=== PATIENT | female | born 2000 | race Hispanic/Latino ===

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

== ENCOUNTER 2022-11-27 22:53 | Emergency (ER) | payer SELFPAY ==
--- OUTSIDE RECORDS SUMMARY | 2022-11-27 22:56 | XMS REPORT | Continuity of Care Document ---
:2000 Author Organization [facility] t Address [address] [facility] [address] [place] [id number] Care Team Providers Name Role Phone Unavailable Unavailable Unavailable Problems This patient has no known problems. Allergies, Adverse Reactions, Alerts Allergy Allergy Status Severity Reaction(s) Onset Inactive Treating Comm ents Source Name Type Date Date Clinician NO KNOWN Drug Active [facility] ALLERGIE [facility] Medications This patient has no known medications. Procedures This patient has no known procedures. Encounters Start End Encounter Admission Attending Care Care Encounter Source Date/Time Date/Time Type Type Clinicians Facility Department ID 2021-02-18 Emergency [facility] [id number] [facility] 06:25:13 [facility] Results This patient has no known results.
[2022-11-27] MEDS ORDERED: LORAZEPAM 1 MG TABLET ONE (23:42)
--- NOTE | 2022-11-27 23:54 | ER ---
Nurse's Notes [facility] Name: Alicia Torres Age: 22 yrs Sex: Female : 2000 Arrival Date: 11/27/2022 Time: 22:53 Bed 12 Private MD: Diagnosis: Epistaxis-resolved;Anxiety disorder, unspecified Presentation: 11/27 22:58 Chief complaint: Patient states: BECAME SOB AND ANXIOUS WHEN NOSE BEGAN TO BLEED. Coronavirus screen: Vaccine status: Patient reports receiving the 2nd dose of the covid vaccine. Ebola Screen: Patient negative for fever greater than or equal to 101.5 degrees Fahrenheit, and additional compatible Ebola Virus Disease symptoms. Initial Sepsis Screen: Does the patient meet any 2 criteria? No. Patient's initial sepsis screen is negative. Does the patient have a suspected source of infection? No. Patient's initial sepsis screen is negative. Risk Assessment: Do you want to hurt yourself or someone else? Patient reports no desire to harm self or others. 22:58 Method Of Arrival: Wheelchair 22:58 Acuity: GENESIS 4 Triage Assessment: 23:01 General: Appears distressed, Behavior is anxious, crying. Pain: Denies pain. Respiratory: Breath sounds are clear bilaterally. Historical: - Allergies: 23:00 No Known Allergies; kl - Home Meds: 23:00 Lexapro 10 mg Oral tablet daily [Active]; albuterol sulfate 90 mcg/actuation inhalation HFA Aerosol Inhaler 1 puff [Active]; - PMHx: 23:00 Asthma; Vertigo; Anxiety; kl - PSHx: 23:00 ANKLE; kl - Immunization history:: Adult Immunizations not immunized. - Social history:: Smoking status: Patient denies any tobacco usage or history of. Screenin/11 00:26 [facility] ED Fall Risk Assessment (Adult) History of falling in the last 3 months, including since admission No falls in past 3 months (0 pts) Confusion or Disorientation No (0 pts) Intoxicated or Sedated No (0 pts) Impaired Gait No (0 pts) Mobility Assist Device Used No (0 pt) Altered Elimination No (0 pt) Score/Fall Risk Level 0 - 2 = Low Risk Oriented to surroundings, Maintained a safe environment. Abuse screen: Denies threats or abuse. Nutritional screening: No deficits noted. Tuberculosis screening: No symptoms or risk factors identified. Assessment: 00:26 Reassessment: Patient appears in no apparent distress at this time. Patient denies pain kl at this time. Patient states feeling better. Patient states symptoms have improved. Vital Signs: 11/27 22:58 BP 138 / 88; Pulse 98; Resp 20; Pulse Ox 100% on R/A; Weight 127.01 kg (R); Height 5 kl ft. 6 in. ; 11/28 00:26 BP 128 / 77; Pulse 84; Resp 18; Pulse Ox 99% on R/A; kl 11/27 22:58 Body Mass Index 45.19 (127.01 kg, 167.64 cm) ED Course: 11/27 22:58 Patient arrived in ED. 23:00 Triage completed. 23:02 Arm band placed on. 23:16 Deangelo Dumont PA is PHCP. 23:16 Deangelo Davis MD is Attending Physician. 11/28 00:27 No provider procedures requiring assistance completed. Patient did not have IV access kl during this emergency room visit. Administered Medications: 11/27 23:34 Drug: LORazepam PO 2 mg Route: PO; mb9 Outcome: 23:54 Discharge ordered by . 11/28 00:27 Discharged to home ambulatory. kl Condition: improved Discharge instructions given to patient, Instructed on discharge instructions, follow up and referral plans. Demonstrated understanding of instructions, follow-up care. 00:27 Patient left the ED. Signatures: Katarina Hill RN RN kl Page, Corey, PA PA cp Breneman, Mary Beth, RN RN mb9
--- NOTE | 2022-11-27 23:54 | EDPHYS ---
Physician Documentation [facility] Name: Alicia Torres Age: 22 yrs Sex: Female : 2000 Arrival Date: 11/27/2022 Time: 22:53 Bed 12 Private MD: ED Physician Deangelo Davis HPI: 11/27 23:30 This 22 yrs old Female presents to ER via Wheelchair with complaints of cp Epistaxis and Anxiety. 23:10 Patient is a 22-year-old female with past medical history significant for asthma and cp anxiety. Patient presents to the emergency department with reported anxiety attack. Patient reports she was at home cleaning her restroom when she started having some shortness of breath and then she noticed that she started bleeding from her nose, the left nostril. She stated this made her shortness of breath worse and she presents to the emergency room tearful, reporting shortness of breath and chest pressure. She reports she used a towel and was able to get the bleeding to stop prior to presentation to the emergency room. She states in the past she has had nosebleeds caused by the multiple piercings in her nose but this nosebleed was worse. Denies any passing out. Historical: - Allergies: 23:00 No Known Allergies; kl - Home Meds: 23:00 Lexapro 10 mg Oral tablet daily [Active]; albuterol sulfate 90 mcg/actuation inhalation kl HFA Aerosol Inhaler 1 puff [Active]; - PMHx: 23:00 Asthma; Vertigo; Anxiety; kl - PSHx: 23:00 ANKLE; kl - Immunization history:: Adult Immunizations not immunized. - Social history:: Smoking status: Patient denies any tobacco usage or history of. ROS: 23:35 Cardiovascular: Positive for chest pain, Negative for edema, palpitations. cp 23:35 Eyes: Negative for injury, pain, redness, and discharge. cp 23:35 Constitutional: Negative for body aches, chills, fever. 23:35 ENT: Positive for nose bleed, Negative for drainage from ear(s), ear pain, sore throat, difficulty swallowing, difficulty handling secretions. 23:35 Respiratory: Positive for shortness of breath, at rest. 23:35 Abdomen/GI: Negative for abdominal pain, vomiting, diarrhea, constipation. 23:35 Neuro: Negative for altered mental status. 23:35 Psych: Positive for anxiety. 23:35 All other systems are negative. Exam: 23:40 Constitutional: The patient appears in no acute distress, alert, awake, cp non-diaphoretic, non-toxic, well developed, well nourished, anxious, uncomfortable. 23:40 Head/Face: Normocephalic, atraumatic. cp 23:40 Eyes: Periorbital structures: appear normal, Pupils: equal, round, and reactive to light and accomodation, Conjunctiva: normal, no exudate, no injection, Sclera: no appreciated abnormality, Lids and lashes: appear normal, bilaterally. 23:40 ENT: External ear(s): are unremarkable, Nose: External nose: no obvious acute abnormality, nasal drainage, that is minimal, and expressed from the left nare, that is blood tinged, Mouth: is normal, Posterior pharynx: is normal, airway is patent, no erythema, no exudate. 23:40 Neck: ROM/movement: is normal, is supple, without pain, no range of motions limitations. 23:40 Chest/axilla: Inspection: normal. 23:40 Cardiovascular: Rate: normal, Rhythm: regular. 23:40 Respiratory: the patient does not display signs of respiratory distress, Respirations: labored breathing, that is mild, Breath sounds: are clear throughout, no decreased breath sounds, no stridor, no wheezing. 23:40 Abdomen/GI: Inspection: abdomen appears normal, Palpation: abdomen is soft and non-tender, in all quadrants. 23:40 Neuro: Orientation: to person, place \T\ time. Mentation: is normal. 23:40 Psych: Behavior/mood is anxious, Patient has no thoughts/intents to harm self or others. Judgement / Insight is normal. Delusions/hallucinations are not present. Vital Signs: 22:58 BP 138 / 88; Pulse 98; Resp 20; Pulse Ox 100% on R/A; Weight 127.01 kg (R); Height 5 kl ft. 6 in. ; 11/28 00:26 BP 128 / 77; Pulse 84; Resp 18; Pulse Ox 99% on R/A; kl 11/27 22:58 Body Mass Index 45.19 (127.01 kg, 167.64 cm) kl MDM: 11/27 23:17 Patient medically screened. [facility] 23:53 Data reviewed: vital signs, nurses notes. 23:53 Differential diagnosis: foreign body - resolved, foreign body - unresolved, nasal cp fracture, trauma, sinusitis. I considered the following discharge prescriptions or medication management in the emergency department Medications were administered in the Emergency Department. See MAR. Counseling: I had a detailed discussion with the patient and/or guardian regarding: the historical points, exam findings, and any diagnostic results supporting the discharge/admit diagnosis, to return to the emergency department if symptoms worsen or persist or if there are any questions or concerns that arise at home. Response to treatment: the patient's symptoms have markedly improved after treatment, and as a result, I will discharge patient. Administered Medications: 23:34 Drug: LORazepam PO 2 mg Route: PO; mb9 Disposition Summary: 11/27/22 23:54 Discharge Ordered Location: Home cp Problem: new cp Symptoms: have improved cp Condition: Stable cp Diagnosis - Epistaxis - resolved cp - Anxiety disorder, unspecified cp Followup: cp - With: Emergency Department - When: As needed - Reason: Worsening of condition Discharge Instructions: - Discharge Summary Sheet cp - Nosebleed, Adult cp - Generalized Anxiety Disorder, Adult cp Forms: - Medication Reconciliation Form cp - Thank You Letter cp - Antibiotic Education cp - Prescription Opioid Use cp - Patient Portal Instructions cp Signatures: Katarina Hill RN RN kl Anderson, Corey, MD MD cha Page, Corey, PA PA cp Marlee Valente RN RN mb9 Corrections: (The following items were deleted from the chart) 11/29 00:16 00:14 This 22 yrs old Female presents to ER via Wheelchair with complaints of cp Epistaxis and Anxiety. cp 00:17 11/28 23:30 This 22 yrs old Female presents to ER via Wheelchair with cp complaints of Epistaxis and Anxiety. cp 11/29 00:17 08 23:30 Patient is a 22-year-old female with past medical history significant for cp asthma and anxiety. Patient presents to the emergency department with reported anxiety attack. Patient reports she was at home cleaning her restroom when she started having some shortness of breath and then she noticed that she started bleeding from her nose, the left nostril. She stated this made her shortness of breath worse and she presents to the emergency room tearful, reporting shortness of breath and chest pressure. She reports she used a towel and was able to get the bleeding to stop prior to presentation to the emergency room. She states in the past she has had nosebleeds caused by the multiple piercings in her nose but this nosebleed was worse. Denies any passing out. cp
[2022-11-28 00:37] VITALS: BP 128/77; O2SAT 99
== END 2022-11-28 00:27 | disposition home or self-care (01) ==
LOC: ER 22:53
DX: R04.0 Epistaxis (principal); F41.9 Anxiety disorder, unspecified
CPT/HCPCS: 99283

== ENCOUNTER 2024-06-05 10:45 | Emergency (ER) | payer OTHER, SELFPAY ==
--- OUTSIDE RECORDS SUMMARY | 2024-06-05 10:47 | XMS REPORT | Continuity of Care Document ---
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
[2024-06-05 12:42] LABS: Absolute Basophils 0.1 K/uL (0-0.5); Absolute Eosinophils 0.2 K/uL (0-0.5); Absolute Lymphocytes (CBC) 2.6 K/uL (0.7-4.9); Absolute Monocytes 0.6 K/uL (0.1-1.3); Absolute Neutrophil 8.4 K/uL (1.8-8.0); Basophils % 0.5 % (0-1.3); Eosinophils % 1.4 % (0-4.4); Hematocrit 35.3 % (36.0-45.0); Hemoglobin 12.1 g/dL (12.0-15.0); Lymphocytes % 21.7 % (15.3-44.8); MCH 26.4 pg (27.0-35.0); MCHC 34.3 g/dL (32.0-36.0); MPV 7.9 fL (7.6-11.3); Monocytes % 5.1 % (3.3-12.3); Neutrophils % 71.3 % (41.7-73.7); Platelets 350 thou/uL (152-406); RBC Red Blood Cell Count 4.59 M/uL (3.86-4.86); Red Cell Distribution Width 14.5 % (12.1-15.2)
[2024-06-05] MEDS ORDERED: ONDANSETRON 4 MG/2 ML VIAL ONE (12:46)
[2024-06-05] MEDS ORDERED: KETOROLAC 30 MG/ML INJ ONE (12:46)
[2024-06-05 12:47] LABS: Specific Gravity 1.007 (1.005-1.030); Sqamous Epithelial <5 /HPF (None Seen); Urine Bacteria <20 /HPF (<20); Urine Bilirubin NEGATIVE (Negative); Urine Blood Negative (Negative); Urine Clarity Turbid (Clear); Urine Color Colorless (Yellow); Urine Crystals Unidentified Few /HPF (None Seen); Urine Culture Reflex Order NOT NEEDED; Urine Glucose NEGATIVE (Negative); Urine Ketones NEGATIVE (Negative); Urine Microscopic Reflex YN ORDER UMIC; Urine Nitrite NEGATIVE (Negative); Urine Protein NEGATIVE (Negative); Urine RBC <5 /HPF (None Seen); Urine Urobilinogen Normal (Normal); Urine WBC <5 /HPF (<5); Urine Yeast (Budding) Trace /HPF (None Seen)
[2024-06-05 12:58] LABS: Albumin 3.4 g/dL (3.4-5.0); Albumin/Globulin Ratio 0.7 (1.1-1.8); Anion Gap 7.5 mEq/L (5.0-15.0); Bilirubin Total 0.5 mg/dL (0.2-1.0); Globulin 5.1 g/dL (2.3-3.5); Potassium 3.5 mEq/L (3.5-5.1); Protein, Total 8.5 g/dL (6.4-8.2)
--- NOTE | 2024-06-05 13:22 | RAD REPORT ---
EXAMINATION: CT ABDOMEN AND PELVIS WITHOUT CONTRAST CLINICAL INDICATION: Abdominal pain. Left flank pain TECHNIQUE: CT abdomen and pelvis was performed, as per department protocol. IV contrast and oral was not administered.Axial, sagittal and coronal reconstructions were obtained. One or more of the following dose reduction techniques were used: Automated exposure control, adjustment of the mA and/o r kV according to the patient size, and/or iterative reconstruction. Unless otherwise specified, incidental findings do not require dedicated imaging follow-up. [id number]. COMPARISON: August 2023 ultrasound FINDINGS: The lack of intravenous and oral contrast limits evaluation of solid organs, vessels and bowel. The liver, spleen, pancreas, adrenals and kidneys appear grossly normal No evidence of diverticulitis. IUD within the uterus Normal appendix. 6.3 cm cystic mass left adnexa mildly enlarged from prior exam. No significant free fluid IMPRESSION: 6.3 cm cystic left adnexal mass is mildly enlarged from prior exam.Pelvic ultrasound is recommended
--- NOTE | 2024-06-05 14:29 | RAD REPORT ---
EXAMINATION: Pelvis Complete CLINICAL INDICATION: Pelvic pain TECHNIQUE: Real-time ultrasonography of the pelvis was performed transabdominally.. Color and spectra l Doppler evaluation of the ovaries was performed. COMPARISON: August 2023. Findings: The uterus measures 5 x 2 x 3 cm. Endometrial stripe normal in thickness. An IUD is present. The distal aspect lies at the junction of the uterine fundus and body. Right ovary upper limits normal in size. Normal echotexture. 6 cm left ovarian cyst. Minimal debris is present. Blood flow is present to the left ovary.. It is mi nimally enlarged from August 2023 . Right and left adnexa unremarkable. No significant free fluid IMPRESSION: 5.9 cm left ovarian cyst is mostly simple. It may represent a benign cyst. Low-grade cystic neoplasm can also have this appearance.Recommend either gynecology consult and follow-up US in 6 months, or MR with IV contrast for improved characterization. The distal aspect of an IUD lies at the junction of the fundus and body
--- NOTE | 2024-06-05 14:30 | RAD REPORT ---
EXAMINATION: Transvaginal Study Probe CLINICAL INDICATION: Pelvic pain TECHNIQUE: Real-time ultrasonography of the pelvis was performed transvaginally. Color and spectral D oppler evaluation of the ovaries was performed. COMPARISON: August 2023. FINDINGS: The uterus measures 5 x 2 x 3 cm. Endometrial stripe normal in thickness. An IUD is present. The distal aspect lies at the junction of the uterine fundus and body. Right ovary upper limits normal in size. Normal echotexture. 6 cm left ovarian cyst. Minimal debris is present. Blood flow is present to the left ovary.. It is mi nimally enlarged from August 2023 .Right and left adnexa unremarkable. No significant free fluid IMPRESSION: 5.9 cm left ovarian cyst is mostly simple. It may represent a benign cyst. Low-grade cystic neoplasm can also have this appearance.Recommend either gynecology consult and follow-up US in 6 months, or MR with IV contrast for improved characterization.
--- NOTE | 2024-06-05 14:41 | EDPHYS ---
Physician Documentation [facility] Name: Alicia Torres Age: 24 yrs Sex: Female : 2000 Arrival Date: 06/05/2024 Time: 10:45 Bed 18 Private MD: ED Physician Justin Dukes HPI: 06/05 11:25 This 24 yrs old Female presents to ER via Unassigned with complaints of Low ec2 Back Pain. 11:25 Patient arrives today for evaluation of left abdominal pain and flank pain. Reports ec2 that she had several days of symptoms that been progressively worsened. Patient reports left flank pain, no falls injuries or trauma. Reports that she is also having some left-sided abdominal pain as well. Some nausea, no vomiting. Denies any urinary complaints. Reports no previous abdominal surgeries. Reports history of PCOS.. 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 - Infectious Disease History:: Denies. - Social history:: Smoking status: Patient denies any tobacco usage or history of. ROS: 11:26 Constitutional: as per hpi ec2 Exam: 11:26 Constitutional: GEN: NAD Head: atraumatic Eyes: EOMI Ears: External ears are ec2 normal. CV: regular rate LUNGS: no respiratory distress ABD: non-distended, soft, not guarding, not rigid, left CVA TTP. SKIN: no evidence of rashes MSK: no evidence of trauma Vital Signs: 12:12 BP 148 / 90; Pulse 66; Resp 16; Temp 98.6; Pulse Ox 100% ; Weight 136.08 kg; Height 5 hb ft. 6 in. ; Pain 6/10; 14:46 BP 137 / 76; Pulse 61; Resp 18; Pulse Ox 97% on R/A; mb9 12:12 Body Mass Index 48.42 (136.08 kg, 167.64 cm) hb 12:12 Pain Scale: Adult hb MDM: 11:26 Data reviewed: vital signs, nurses notes. ED course: Patient arrives today for left ec2 flank pain and abdominal pain. Emanation yields abdominal findings as above. Will obtain lab work, urine studies, CT imaging. Differential occludes hemorrhagic cyst, UTI, pyelonephritis, musculoskeletal strain. 11:45 Medical Screening Exam initiated ec2 13:10 ED course: CBC is reassuring. Metabolic profile with appropriate electrolytes and urine ec2 is noninfectious, negative . Pending CT imaging.. 13:28 ED course: CT abdomen pelvis shows ovarian mass. Will obtain follow-up ultrasonography. ec2 . 14:40 ED course: Ultrasound shows simple cyst, had the patient follow-up with gynecology. ec2 Return precautions given.. 06/05 11:25 Order name: CBC with Diff; Complete Time: 13:10 ec2 06/05 11:25 Order name: CMP; Complete Time: 13:10 ec2 06/05 11:25 Order name: Lipase; Complete Time: 13:10 ec2 06/05 11:25 Order name: Test, Urine; Complete Time: 13:10 ec2 06/05 11:25 Order name: Urinalysis w/ reflexes; Complete Time: 13:10 ec2 06/05 11:25 Order name: CT Abd/Pelvis - Without Contrast; Complete Time: 13:27 ec2 06/05 13:27 Order name: Transvaginal Study (probe); Complete Time: 14:39 ec2 06/05 14:06 Order name: Pelvis Complete; Complete Time: 14:39 EDMS 06/05 11:25 Order name: IV Saline Lock; Complete Time: 12:34 ec2 06/05 11:25 Order name: Labs collected and sent; Complete Time: 12:35 ec2 Administered Medications: 13:15 Drug: TORadol - Ketorolac IVP 15 mg IVP once Route: IVP; Site: left antecubital; hb 14:47 Follow up: Response: No adverse reaction mb9 13:15 Drug: Ondansetron IVP 4 mg IVP once; over 2 minutes Route: IVP; Site: left antecubital; hb 14:47 Follow up: Response: No adverse reaction mb9 Disposition Summary: 06/05/24 14:40 Discharge Ordered Notes: Location: Home ec2 Condition: Stable ec2 Diagnosis - Other ovarian cysts ec2 Followup: ec2 - With: Estelle Win MD - When: - Reason: Recheck today's complaints Discharge Instructions: - Discharge Summary Sheet ec2 - Ovarian Cyst, [id number] ec2 Forms: - Work release form mb9 - Medication Reconciliation Form ec2 - Antibiotic Education ec2 - Prescription Opioid Use ec2 - Patient Portal Instructions ec2 - Leadership Thank You Letter ec2 Prescriptions: - acetaminophen-codeine 300-30 mg Oral tablet - take 1 tablet ORAL route every 4 hours as needed for pain; 15 tablet; Refills: ec2 0, Product Selection Permitted Signatures: Dispatcher [employer] EDMS Darcie Murphy RN RN Justin Dukes MD MD ec2 Marlee Kang RN mb9 Corrections: (The following items were deleted from the chart) 11:25 11:25 CBC+H.LAB.BRZ ordered. EDMS EDMS 11:25 11:25 COMPREHENSIVE METABOLIC PANEL+C.LAB.BRZ ordered. EDMS EDMS 11:25 11:25 LIPASE+C.LAB.BRZ ordered. EDMS EDMS 11:25 11:25 Test, Urine+UC.LAB.BRZ ordered. EDMS EDMS 11:25 11:25 Urinalysis+U.LAB.BRZ ordered. EDMS EDMS 11:25 11:25 Abdomen Pelvis Wo Con+CT.RAD.BRZ ordered. EDMS EDMS 12:15 12:14 PMHx: ovarian cysts (Vertigo); hb hb 12:15 12:14 PMHx: PCOS (Ankle); hb hb
--- NOTE | 2024-06-05 14:41 | ER ---
Nurse's Notes [facility] Name: Alicia Torres Age: 24 yrs Sex: Female : 2000 Arrival Date: 06/05/2024 Time: 10:45 Bed 18 Private MD: Diagnosis: Other ovarian cysts Presentation: 06/05 12:12 Chief complaint: Patient states: left lower back pain that wraps around to LLQ started hb yesterday, 09/27, sharp. Was worse but took Ibuprofen 800mg about 08:30 this morning. Coronavirus screen: Vaccine status: Patient reports receiving the 2nd dose of the covid vaccine. Ebola Screen: No symptoms or risks identified at this time. Initial Sepsis Screen: Does the patient meet any 2 criteria? No. Patient's initial sepsis screen is negative. Does the patient have a suspected source of infection? No. Patient's initial sepsis screen is negative. Risk Assessment: Do you want to hurt yourself or someone else? Patient reports no desire to harm self or others. Onset of symptoms was June 04, 2024. 12:12 Method Of Arrival: Ambulatory 12:12 Acuity: GENESIS 3 hb Triage Assessment: 12:15 General: Appears uncomfortable, obese, well groomed, well developed, Behavior is calm, hb cooperative, appropriate for age. Pain: Complains of pain in left low back Pain radiates to left lower quadrant Pain currently is 6 out of 10 on a pain scale. Quality of pain is described as sharp, Pain began 1 day ago. Is continuous. EENT: No signs and/or symptoms were reported regarding the EENT system. Neuro: Level of Consciousness is awake, alert, obeys commands, Oriented to person, place, time, situation, Appropriate for age. Cardiovascular: Patient's skin is warm and dry. Respiratory: Airway is patent Respiratory effort is even, unlabored, Respiratory pattern is regular, symmetrical. GI: No signs and/or symptoms were reported involving the gastrointestinal system. : Reports pain in left lower quadrant(s) in lower back since yesterday Denies burning with urination, urinary frequency. Derm: Skin is intact, is healthy with good turgor, Skin is pink, warm \T\ dry. Musculoskeletal: No signs and/or symptoms reported regarding the musculoskeletal system. 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 - Infectious Disease History:: Denies. - Social history:: Smoking status: Patient denies any tobacco usage or history of. Screenin:16 [facility] ED Fall Risk Assessment (Adult) History of falling in the last 3 months, hb including since admission No falls in past 3 months (0 pts) Confusion or Disorientation No (0 pts) Intoxicated or Sedated No (0 pts) Impaired Gait No (0 pts) Mobility Assist Device Used No (0 pt) Altered Elimination No (0 pt) Score/Fall Risk Level 0 - 2 = Low Risk Oriented to surroundings, Maintained a safe environment, Educated pt \T\ family on fall prevention, incl call for assistance when getting out of bed. Abuse screen: Denies threats or abuse. Denies injuries from another. Nutritional screening: No deficits noted. Tuberculosis screening: Assessment: 13:15 General: Appears in no apparent distress. Behavior is calm, cooperative. Pain: Pain hb currently is 7 out of 10 on a pain scale. Neuro: Level of Consciousness is awake, alert, obeys commands, Oriented to person, place, time, situation. Cardiovascular: Patient's skin is warm and dry. Respiratory: Respiratory effort is even, unlabored, Respiratory pattern is regular, symmetrical. GI: Reports lower abdominal pain, upper abdominal pain. : Reports flank pain. EENT: No signs and/or symptoms were reported regarding the EENT system. Derm: Skin is pink, warm \T\ dry. Musculoskeletal: No signs and/or symptoms reported regarding the musculoskeletal system. 14:46 Reassessment: Patient and/or family updated on plan of care and expected duration. Pain mb9 level reassessed. Patient is alert, oriented x 3, equal unlabored respirations, skin warm/dry/pink. Patient states feeling better. Patient states symptoms have improved. Vital Signs: 12:12 BP 148 / 90; Pulse 66; Resp 16; Temp 98.6; Pulse Ox 100% ; Weight 136.08 kg; Height 5 hb ft. 6 in. ; Pain 6/10; 14:46 BP 137 / 76; Pulse 61; Resp 18; Pulse Ox 97% on R/A; mb9 12:12 Body Mass Index 48.42 (136.08 kg, 167.64 cm) hb 12:12 Pain Scale: Adult hb ED Course: 10:49 Patient arrived in ED. al6 10:52 Justin Dukes MD is Attending Physician. ec2 12:14 Triage completed. hb 12:15 Arm band placed on Patient placed in waiting room. hb 12:30 Radiology exam delayed due to test not completed at this time. mw3 12:35 CBC with Diff Sent. cc6 12:35 CMP Sent. cc6 12:35 Lipase Sent. cc6 12:35 Test, Urine Sent. cc6 12:35 Urinalysis w/ reflexes Sent. cc6 12:35 Initial lab(s) drawn, by me, sent to lab. Inserted saline lock: 20 gauge in left cc6 antecubital area, using aseptic technique. Blood collected. Flushed with 10 mL NS. 12:59 CT Abd/Pelvis - Without Contrast In Process Unspecified. EDMS 13:10 Marlee Kang, LEVI is Primary Nurse. mb9 13:16 Patient has correct armband on for positive identification. Provided Education on: hb medications, tests, result times. 13:18 No provider procedures requiring assistance completed. mb9 14:16 Transvaginal Study (probe) In Process Unspecified. EDMS 14:16 Pelvis Complete In Process Unspecified. EDMS 14:40 Estelle Win MD is Referral Physician. ec2 14:46 IV discontinued, intact, bleeding controlled, No redness/swelling at site. Pressure mb9 dressing applied. Administered Medications: 13:15 Drug: TORadol - Ketorolac IVP 15 mg IVP once Route: IVP; Site: left antecubital; hb 14:47 Follow up: Response: No adverse reaction mb9 13:15 Drug: Ondansetron IVP 4 mg IVP once; over 2 minutes Route: IVP; Site: left antecubital; hb 14:47 Follow up: Response: No adverse reaction mb9 Medication: 14:47 VIS not applicable for this client. mb9 Outcome: 14:40 Discharge ordered by . ec2 14:46 Discharged to home ambulatory, with family, mb9 14:46 Condition: stable 14:46 Discharge instructions given to patient, Instructed on discharge instructions, follow up and referral plans. Demonstrated understanding of instructions, follow-up care, medications, Prescriptions given X 1, 14:47 Patient left the ED. mb9 Signatures: Dispatcher [employer] Darcie Stuart RN RN hb Melia Mancia 3 Marlee Kang RN RN mb9 Justin Dukes MD MD ec2 Isabel Saunders 6 Silva Robles6 Corrections: (The following items were deleted from the chart) 12:15 12:14 PMHx: ovarian cysts (Vertigo); hb hb 12:15 12:14 PMHx: PCOS (Ankle); hb hb
[2024-06-05 14:54] VITALS: TEMP 98.6
[2024-06-05 14:56] VITALS: BP 137/76; O2SAT 97
== END 2024-06-05 14:47 | disposition home or self-care (01) ==
LOC: ER 10:45
DX: N83.292 Other ovarian cyst, left side (principal)
CPT/HCPCS: 85025; 81001; 36415; 81025; 83690; 80053; 74176; 76856; 76830; J2405; 96374; 96375; 99284